=== PATIENT | female | born 1945 | race Caucasian/White ===

== ENCOUNTER 2019-05-27 09:27 | Inpatient (IN) | payer OTHER ==
[~2019-05-27] VITALS: Ht 162.6 cm; Wt 110.7 kg
[~2019-05-27 09:27] MED LIST: ALBU2.5V5 INH; ALBU90OI INH; ALBU90OI6 INH; Advair Hfa 115-12 GM INH; Aspir 8181 MG PO; BACL10 PO; Buspirone HCl7.5 MG PO; CALCAVITD PO; K-Dur 20 meq T20 MEQ PO; MAGNESIUM PO; Prednisone20 MG PO; SPIRIVA RESPIMAT4 GM INH; TORSE20 PO; TYLENOL PM PO; Ventolin Soln3 ML INH; Vitamin D2000 UNIT PO; WOMEN'S 50+ DA1 EACH PO
--- NOTE | 2019-05-27 13:51 | NUR ---
History, Chart, Medications and Allergies reviewed before start of procedure. Patient confirms NPO status and agrees with scheduled surgery. Pre-Op teaching done. Pt verbalizes understanding. LUNGS WITH SCATTERED DENSE FAR AWAY SOUNDING WHEEZES THROUGHOUT, LOUDER OVER MID-LUNG RANGE. DR BOSCH HAS ORDERED A DUONEB PRESURGICALLY. PATIENT ON 2.5 L NC AT ADMIT AND TRANSFERED TO HOSPITAL O2 ON ADMIT TO [facility]. Patient States Post-Procedure ride home has been arranged IF PATIENT IS TO BE DISCHARGED TODAY, PLAN IS TO REASSESS POST-SURGICALLY. Patient reports completing Chlorhexadine shower X2 prior to admission to hospital. TOP AND BOTTOM DENTURES IN PLACE, NO JEWELRY, HEARING AIDS, OR CONTACTS ON/IN AT ADMIT.
--- NOTE | 2019-05-27 14:24 | NUR ---
PER DR CARMEN IF PATIENT WISHES TO STAY THAT SHE IS WELCOME TO, HOWEVER HIS PLAN IS TO SEE IF SHE IS ABLE TO BE DISCHARGED HOME TODAY. AFTER HE LEFT THE BEDSIDE, PATIENT'S DAUGHTER STATED THAT SHE WILL NOT BE ABLE TO HAVE ANYONE WITH HER TONIGHT, PATIENT HAS HOME O2 THAT SHE WEARS /. EDUCATION PROVIDED THE PATIENT REGARDING RECOMMENDATION TO HAVE SOMEONE WITH HER AT LEAST 24 HRS AND THAT SHE WOULD BE AT AN INCREASED RISK FOR FALL DUE TO HER AGE, AND O2 TUBING. SHE RELUCTANTLY STATES THAT THOUGH SHE WOULD RATHER GO, SHE PROBABLY SHOULD STAY THEN; HER DAUGHTER AGREES. WILL PASS THIS INFORMATION ON TO PACU FOR REASSESSMENT POST-SURGICALLY, AND ADVOCATION FOR PATIENT TO STAY OVERNIGHT DUE TO HER INCREASED RISK OF FALL AT HOME.
--- NOTE | 2019-05-27 14:47 | NUR ---
DISCUSSED CONCERNS RELATED TO INCREASE RISK OF FALL WITH DR CARMEN, NO NEW ORDERS RECEIVED AT THIS TIME.
--- NOTE | 2019-05-27 14:49 | NUR ---
PATIENT'S HOME O2 PER PATIENT: 2.5 L NC AT REST, 3 L WITH ACTIVITY.
--- NOTE | 2019-05-27 18:26 | NUR ---
PATIENT ARRIVED ICU 5 1750 FROM OR. INTUBATED WITH 7.0 ETT [address] BOSCH UNTIL VENTILATOR SET UP BY RT LAITH. PATIENT AWAKENED AND GAGGED ON ETT, MOUTHING SHE CAN'T BREATHE AND "TAKE IT OUT" PROPOFOL STARTED AT 30 MCG/KG/MIN AT 1758. RESTRAINED TO AVOID SELF EXTUBATION. DR. CARMEN, DR. DIGGS AND DR. WERNER IN. CXR COMPLETED AND LABS BEING DRAWN NOW.
[2019-05-27 18:52] LABS: PCO2 Arterial 64.4 mmHg (35-45); PO2 Arterial 136 mmHg (80-100); pH Blood Arterial 7.37 (7.35-7.45)
[2019-05-27 19:03] LABS: BASOPHILS ABSOLUTE AUTO 0.02 K/mm3 (0.00-0.23); BASOPHILS PERCENT AUTO 0 % (0-2); EOSINOPHILS ABSOLUTE AUTO 0.02 K/mm3 (0.00-0.68); EOSINOPHILS PERCENT AUTO 0 % (0-6); Hematocrit 40.5 % (33.0-51.0); Hemoglobin 12.3 g/dL (11.5-16.0); IMMATURE GRAN ABSOLUTE AUTO 0.03 K/mm3 (0.00-0.10); IMMATURE GRAN PERCENT AUTO 0 % (0-1); LYMPHOCYTES ABSOLUTE AUTO 0.62 K/mm3 (0.84-5.20); LYMPHOCYTES PERCENT AUTO 7 % (21-46); MONOCYTES ABSOLUTE AUTO 0.15 K/mm3 (0.16-1.47); MONOCYTES PERCENT AUTO 2 % (4-13); Mean Corpuscular HGB 30.4 pg (26.0-34.0); Mean Corpuscular HGB Conc 30.4 g/dL (31.5-36.5); Mean Corpuscular Volume 100 fL (80-100); NEUTROPHILS ABSOLUTE AUTO 7.55 K/mm3 (1.96-9.15); NEUTROPHILS PERCENT AUTO 90 % (41-73); RDW Coefficient Variation 13.9 % (11.7-14.2); RDW Standard Deviation 51.3 fL (35.1-46.3); Red Blood Cell Count 4.05 M/mm3 (3.80-5.20); White Blood Cell Count 8.39 K/mm3 (4.00-11.30)
--- NOTE | 2019-05-27 19:11 | NUR ---
REPORT GIVEN TO LUIS MESA
[2019-05-27 19:14] LABS: Alanine Aminotransfer (ALT/SGP 18 U/L (12-78); Albumin, Blood 3.5 g/dL (3.4-5.0); Albumin/Globulin Ratio 0.9 (0.8-1.8); Alk Phos 81 U/L (50-136); Anion Gap 1 mmol/L (6-16); Aspartate Aminotrans (AST/SGOT 22 U/L (12-37); Bilirubin, Total 0.3 mg/dL (0.1-1.0); Blood Urea Nitrogen 18 mg/dL (8-24); Bun/Creatinine Ratio 23.4 (12.0-20.0); CO2, Blood 35 mmol/L (21-32); Chloride, Blood 100 mmol/L (98-108); Creatinine, Blood 0.77 mg/dL (0.40-1.00); Glomerular Filtration Rate >60 (60-); Glucose, Blood 136 mg/dL (70-99); Potassium, Blood 4.3 mmol/L (3.5-5.5); Sodium, Blood 136 mmol/L (136-145); Total Protein, Blood 7.5 g/dL (6.4-8.2); Troponin I 0.015 ng/mL (0.000-0.040)
[2019-05-27 19:19] LABS: Platelet Count 177 K/mm3 (150-400)
--- NOTE | 2019-05-27 19:45 | NUR ---
INITAL SHIFT ASSESSMENT PT IS CURRENTLY INTUBATED AND SEDATED. COOPERTIVE WITH CARE. OPENS EYES TO PHYSICAL STIMULI AND DRAWS LEGS UP IN BED A PAINFUL RESPONSE. SEGAL CATH WAS INSERTED BY THIS RN WITH ASSISTANCE FROM SECOND RN. SECOND IV STARTED TO RIGHT WRIST/HAND. PT TOLERATED THIS WELL. IV IS CURRENTLY SL. IV TO LEFT WRIST/HAND HAS PROPOFOL AND NS RUNNING ORDERED. PROPOFOL GTT RUNNING AT 30MCG/KG/MIN. WILL CON'T TO TITRATE NEEDED T/O SHIFT TO KEEP PT COMFORTABLE. ET TUBE IN PLACE 7.0 24 AT LIP. OG TUBE PLACED BY SANJANA Zuluaga FLOUR MIXER. PLACEMENT WAS CONFIRMED BY AUSCULTATION OF AIR WELL GASTRIC CONTENT RETURN. OG IS ON LOW INT SUCTION ORDERED WITH MINIMAL RETURN. BOWEL TONES WNL WITH SOFT ROUND ABD. TELE LEADS IN PLACE NSR NOTED. APICAL PULSE NOTED. SEE NURSES ASSESSMENT FOR RESPIRATORY STATUS AND VENT SETTINGS. PT DOES NOT APPEAR TO BE IN ANY RESP DISTRESS AT THIS TIME. DRESSINGS TO LEFT HIP HAVE SOME BLOOD NOTED. WILL CON'T TO MONITOR T/O SHIFT. PT HAS SADI HOSE WELL PAS STOCKINGS IN PLACE. ANA MARIA SOFT WRIST RESTRAINTS IN PLACE. NO SKIN ISSUES AT THIS TIME. WILL CON'T TO ASSESS SKIN UNDER WRIST RESTRAINTS. BED RAILS UP AND BED IN LOW POSISTION. WILL CON'T TO MONITOR PT T/O REMAINDER OF THIS RN'S SHIFT.
[2019-05-27 20:16] LABS: Source, Urine Catheter
[2019-05-27 20:20] LABS: Bilirubin, Urine Neg (Neg); Blood, Urine Neg (Neg); Glucose Qualitative, Urine Neg (Neg); Ketones, Urine Neg (Neg); Leukocyte Esterase, Urine Neg (Neg); Nitrite, Urine Neg (Neg); Protein, Urine Neg (Neg); Urobilinogen, Urine NORM (Normal)
[2019-05-27 20:29] LABS: Appearance, Urine Clear (Clear); Color, Urine Yellow (P-Yellow)
--- NOTE | 2019-05-28 00:50 | NUR ---
V-TACH: PT WITH RUN OF 24 VTACH. A STAT Mg ORDERED AND IS 1.9. WILL CONTINUE TO MONITOR.
--- NOTE | 2019-05-28 02:45 | NUR ---
PROPOFOL TITRATED DOWN TO 35% EXPECTING TRIAL SEDATION VACATION THIS AM.
[2019-05-28 03:19] LABS: BASOPHILS PERCENT AUTO 0 % (0-2); EOSINOPHILS PERCENT AUTO 0 % (0-6); Hematocrit 34.2 % (33.0-51.0); Hemoglobin 10.6 g/dL (11.5-16.0); IMMATURE GRAN ABSOLUTE AUTO 0.04 K/mm3 (0.00-0.10); IMMATURE GRAN PERCENT AUTO 0 % (0-1); LYMPHOCYTES ABSOLUTE AUTO 0.99 K/mm3 (0.84-5.20); LYMPHOCYTES PERCENT AUTO 8 % (21-46); MONOCYTES ABSOLUTE AUTO 0.45 K/mm3 (0.16-1.47); MONOCYTES PERCENT AUTO 4 % (4-13); Mean Corpuscular HGB 30.5 pg (26.0-34.0); Mean Corpuscular Volume 99 fL (80-100); NEUTROPHILS ABSOLUTE AUTO 10.73 K/mm3 (1.96-9.15); NEUTROPHILS PERCENT AUTO 88 % (41-73); Platelet Count 167 K/mm3 (150-400); Red Blood Cell Count 3.47 M/mm3 (3.80-5.20); White Blood Cell Count 12.21 K/mm3 (4.00-11.30)
[2019-05-28 03:47] LABS: Anion Gap 4 mmol/L (6-16); Blood Urea Nitrogen 18 mg/dL (8-24); Bun/Creatinine Ratio 25.1 (12.0-20.0); CO2, Blood 35 mmol/L (21-32); Calcium, Blood 9.1 mg/dL (8.5-10.1); Chloride, Blood 98 mmol/L (98-108); Creatinine, Blood 0.72 mg/dL (0.40-1.00); Glomerular Filtration Rate >60 (60-); Glucose, Blood 138 mg/dL (70-99); Potassium, Blood 4.4 mmol/L (3.5-5.5); Sodium, Blood 137 mmol/L (136-145)
[2019-05-28 04:00] LABS: PCO2 Arterial 55.6 mmHg (35-45); PO2 Arterial 69.4 mmHg (80-100); pH Blood Arterial 7.46 (7.35-7.45)
--- NOTE | 2019-05-28 04:17 | NUR ---
WEAN TRIAL PASS: PT BEGAN ON WEAN TRIAL AT 0324. PT SLIGHTLY ANXIOUS BUT TOLERATED WELL. SEE RT NOTE.
--- NOTE | 2019-05-28 06:23 | NUR ---
PT'S DAUGHTER CALLED AND WAS UPDATED.
--- NOTE | 2019-05-28 08:26 | NUR ---
ASSUMED CARE AT 0700. REPORT FROM SANJANA SMITH. PT INTUBATED AND SEDATED. VENT SETTINGS, AC 14/450/5/40%. PROPOFOL INFUSING AT 40 MCG/KG/MIN. PT OPENS EYES TO VERBAL STIMULI. GAG PRESENT. LUNGS CLEAR. NS INFUSING AT 80 ML/HR. DRESSING IN PLACE TO LEFT HIP. BLOODY DRAINAGE NOTED TO DRESSING. REINFORCED ON RISK TECH. PPP. CAP REFILL <2 SEC. OGT PATENT, CLAMPED. SEGAL PATENT AND DRAINING TO GRAVITY. WILL CONTINUE TO MONITOR.
--- NOTE | 2019-05-28 10:01 | NUR ---
DR CHRISTIANSON IN TO SEE PT. PLAN FOR EXTUBATION. PROPOFOL PLACED ON STANDBY AT 0909. PT CHANGED TO SPONTANEOUS MODE, PS OF 5, 40%, PEEP 5. PT RESP RATE 20'S. CALMS c REASSURANCE. VOLUMES 400-500. ORDER TO EXTUBATE. RT CALLED TO BEDSIDE. PT EXTUBATED AT 0930. BILATERAL WRIST RESTRAINTS REMOVED AT TIME OF EXTUBATION. PT HAS STRONG COUGH AND GAG. PLACED ON 4L NC UPON EXTUBATION. TOLERATING WELL. REQUESTING PAIN MEDS. DR CHRISTIANSON NOTIFIED. ORDER FOR FENTANYL PRN. CALL LIGHT IN REACH.
--- NOTE | 2019-05-28 11:19 | NUR ---
PT PENDING TRANSFER TO SURGICAL. PT TOLERATING SMALL SIPS OF WATER WELL. MANAGING SECRETIONS, SPEAKING IN FULL SENTANCES. WILL ADVANCE DIET TOLERATED. VSS. WILL CONTINUE TO MONITOR.
--- NOTE | 2019-05-28 11:49 | NUR ---
REPORT TO LEE SMITH. PT MOVED TO 219. ALL BELONGINGS c PT. VSS.
--- NOTE | 2019-05-28 12:22 | NUR ---
ASSUMED CARE OF PT, ORIENTED TO ROOM AND CALL LIGHT, EATING FULL LIQUIDS FOR LUNCH, DENIES ANY NEED FOR PAIN MEDS AT THIS TIME, DENIES ANY SOB, CONT. TO MONITOR FOR ANY CHANGES.
--- NOTE | 2019-05-28 18:02 | NUR ---
SUMMARY OOB TO CHAIR TODAY, MODERATE ASSIST, GAIT IS WEAK, INCREASED SOB WITH MINIMAL ACTIVITY, REFUSED POC CBG THIS EVENING, REPORTS PAIN HAS BEEN TOLERABLE, NO ACUTE CHANGES THIS SHIFT.
--- NOTE | 2019-05-29 04:43 | NUR ---
SHIFT SUMMARY PT POD#2 HARDWARE REMOVAL. AAOX4. DISCOMFORT CONTROLLED WITH 25mcg FENTANYL Q3-4P. NO NAUSEA/EMESIS. INCISION TO LEFT HIP WITH DRESSING, SCANT AMOUNT RED DRAINAGE, NO CHANGE THIS SHIFT. PT UP TO BSC MODERATE ASSIST WITH FWW. RESTED INFREQUENTLY T/O NIGHT, NO ACUTE CHANGES THIS SHIFT. PT RESTING AT THIS TIME, CALL LIGHT IN REACH.
--- NOTE | 2019-05-29 10:22 | NUR ---
SOB THIS AM, INCREASED WITH ACTIVITY, DENIES ANY COUGH, EXPIRATORY WHEEZES T/O AND CRACKLES NOTED ON LUNG BASES, DR. DIGGS NOTIFIED THIS AM, WORKED WITH PHY. RICKS THIS AM.
[2019-05-29 14:19] LABS: Hematocrit 34.5 % (33.0-51.0); Hemoglobin 10.7 g/dL (11.5-16.0)
--- NOTE | 2019-05-29 17:43 | NUR ---
CARE ASSUMED AT APPROXIMATELY 1730. PT ALERT AND ORIENTED. PAIN MEDICATION PROVIDED. WILL MONITOR UNTIL REPORT TO ONCOMING RN.
[2019-05-30 05:17] LABS: Anion Gap 4 mmol/L (6-16); Blood Urea Nitrogen 22 mg/dL (8-24); Bun/Creatinine Ratio 23.8 (12.0-20.0); CO2, Blood 38 mmol/L (21-32); Calcium, Blood 8.5 mg/dL (8.5-10.1); Chloride, Blood 98 mmol/L (98-108); Creatinine, Blood 0.93 mg/dL (0.40-1.00); Glomerular Filtration Rate >60 (60-); Glucose, Blood 95 mg/dL (70-99); Potassium, Blood 3.3 mmol/L (3.5-5.5); Sodium, Blood 140 mmol/L (136-145)
--- NOTE | 2019-05-30 06:17 | NUR ---
SHIFT SUMMARY LYING IN SEMI FOWLERS WITH EYES CLOSED. REPOSITIONES SELF FOR COMFORT PRN. PAIN MANAGED WITH PRN MEDS PER MD ORDERS. ASSISTED PRN TO BSC AND BACK TO BED. DENIES FURTHER NEEDS AT THIS TIME. SAFETY MEASURES IN PLACE. WILL GIVE HAND OFF TO ONCOMING SHIFT USING SBAR.
--- NOTE | 2019-05-30 11:47 | NUR ---
DRESSINGS TO L HIP AND THIGH NEEDING CHANGED. INCISION CLEANED AND NEW MEDIPORE DRESSING PLACED.
--- NOTE | 2019-05-31 04:43 | NUR ---
SHIFT SUMMARY: PT S/P REMOVAL/REPLACEMENT TO HARDWARE IN L HIP. VS WNL. PT ON 2LO2 VIA NC PER PT BASELINE. PAIN MANAGED WITH PERCOCET Q6 PER EMAR. MEDIPRE DRESSING TO LEFT HIP CHANGED WITH ABD PAD + PRESSURE TAPE. OOB TO BATHROOM WITH 1 ASSIST W/FWW+GB. PLAN FOR POSSIBLE D/C TODAY.
[2019-05-31 05:45] LABS: BASOPHILS ABSOLUTE AUTO 0.03 K/mm3 (0.00-0.23); BASOPHILS PERCENT AUTO 0 % (0-2); EOSINOPHILS ABSOLUTE AUTO 0.24 K/mm3 (0.00-0.68); EOSINOPHILS PERCENT AUTO 3 % (0-6); Hematocrit 29.5 % (33.0-51.0); IMMATURE GRAN ABSOLUTE AUTO 0.02 K/mm3 (0.00-0.10); IMMATURE GRAN PERCENT AUTO 0 % (0-1); LYMPHOCYTES ABSOLUTE AUTO 1.87 K/mm3 (0.84-5.20); LYMPHOCYTES PERCENT AUTO 26 % (21-46); MONOCYTES ABSOLUTE AUTO 0.68 K/mm3 (0.16-1.47); MONOCYTES PERCENT AUTO 9 % (4-13); Mean Corpuscular HGB 30.1 pg (26.0-34.0); Mean Corpuscular HGB Conc 30.5 g/dL (31.5-36.5); Mean Corpuscular Volume 99 fL (80-100); Mean Platelet Volume 11.5 fL (9.1-12.4); NEUTROPHILS ABSOLUTE AUTO 4.36 K/mm3 (1.96-9.15); NEUTROPHILS PERCENT AUTO 61 % (41-73); Platelet Count 178 K/mm3 (150-400); RDW Coefficient Variation 14.2 % (11.7-14.2); RDW Standard Deviation 51.1 fL (35.1-46.3); Red Blood Cell Count 2.99 M/mm3 (3.80-5.20)
[2019-05-31 06:03] LABS: Albumin, Blood 2.7 g/dL (3.4-5.0); Anion Gap 3 mmol/L (6-16); Blood Urea Nitrogen 27 mg/dL (8-24); Bun/Creatinine Ratio 27.7 (12.0-20.0); CO2, Blood 38 mmol/L (21-32); Calcium, Blood 8.7 mg/dL (8.5-10.1); Chloride, Blood 96 mmol/L (98-108); Creatinine, Blood 0.98 mg/dL (0.40-1.00); Glomerular Filtration Rate 60 (60-); Glucose, Blood 92 mg/dL (70-99); Phosphorus, Blood 3.3 mg/dL (2.5-4.9); Potassium, Blood 3.4 mmol/L (3.5-5.5); Sodium, Blood 137 mmol/L (136-145)
[2019-05-31] MEDS ORDERED: CALCIUM 600 +1 EA11 PO (12:14)
[2019-05-31] MEDS ORDERED: Percocet 5-3251 EACH PO (12:18)
--- NOTE | 2019-05-31 12:29 | NUR ---
PT HAD NO IV.
--- NOTE | 2019-05-31 12:29 | NUR ---
DISCHARGE: PT EATING AND DRINKING WELL. PT VOIDING. PT REPORTS PAIN CONTROLLED ON PO PAIN MEDICATION. PT REPORTS HAVING WALKER AT HOME. PT REFUSING TO HAVE HOME HEALTH, DR PRADO. PT REPORTS HAVING FRIENDS AND FAMILY THAT WILL HELP PT AT HOME. PT/FAMILY REPORTS UNDERSTANDING OF DISCHARGE INSTRUCTIONS. INCLUDING TO PCP PER DR DAMICO. DR DAMICO ALSO REPORTED PT MAY BE DISCHARGED. PT GIVEN MULT DRESSINGS FOR CHANGING DRESSING. PT BEEN CLEARED BY THERAPY. FAMILY GIVING PT RIDE HOME.
== END 2019-05-31 12:37 | disposition home or self-care (01) | DRG 463 ==
LOC: ORSCMMR 09:27 → ORSCSDS 10:45 → ORSCMMR 16:00 → ICUE 18:22 → SURS 05-28 12:01
PROVIDERS: Internal Medicine; Internal Medicine Critical Care Medicine; ADMIT Orthopaedic Surgery
PROC: 0BH17EZ Insertion of Endotracheal Airway into Trachea, Via Natural or Artificial Opening (ICD-10-PCS; 2019-05-27)
PROC: 5A1935Z Respiratory Ventilation, Less than 24 Consecutive Hours (ICD-10-PCS; 2019-05-27)
PROC: 0SPB0JZ Removal of Synthetic Substitute from Left Hip Joint, Open Approach (ICD-10-PCS; principal; 2019-05-27 16:00)
DX: T84.84XA Pain due to internal orthopedic prosthetic devices, implants and grafts, initial encounter (principal); J95.821 Acute postprocedural respiratory failure; J44.1 Chronic obstructive pulmonary disease with (acute) exacerbation; I97.89 Other postprocedural complications and disorders of the circulatory system, not elsewhere classified; I47.2 Ventricular tachycardia; I10 Essential (primary) hypertension; E66.01 Morbid (severe) obesity due to excess calories; K59.00 Constipation, unspecified; E87.6 Hypokalemia; D64.9 Anemia, unspecified; Z99.81 Dependence on supplemental oxygen; Z87.891 Personal history of nicotine dependence; Z96.642 Presence of left artificial hip joint
CPT/HCPCS: 31720; 36415; 36416; 36600; 51702; 71045; 80048; 80053; 80069; 81003; 82803; 82947; 83605; 83735; 83880; 84484; 85014; 85018; 85025; 94002; 94003; 94640; 94760; 97110; 97116; 97162; 97166; 97530; A9270; C1713; C9113; J0690; J1100; J1650; J2250; J2405; J2704; J2710; J2930; J3010; J7030; J7120

== ENCOUNTER 2019-06-09 16:06 | Inpatient (IN) | payer OTHER ==
[~2019-06-09] VITALS: Ht 162.6 cm; Wt 112.0 kg
[~2019-06-09 16:06] MED LIST changes: +CALCIUM 600 +1 EA11 PO; +Percocet 5-3251 EACH PO
[2019-06-09 16:35] LABS: Calcium, Ionized (POC) 1.14 mmol/L (1.10-1.46); Chloride (POC) 92 mmol/L (98-108); Creatinine (POC) 0.9 mg/dL (0.6-1.0); Glucose (ISTAT POC) 114 mg/dL (70-99); Hemoglobin (POC) 10.5 g/dL (12.0-16.0); Potassium (POC) 4.2 mmol/L (3.5-5.5); Sodium (POC) 134 mmol/L (135-148); Total CO2 (POC) 34 mmol/L (21-32)
[2019-06-09 16:42] LABS: BASOPHILS ABSOLUTE AUTO 0.03 K/mm3 (0.00-0.23); BASOPHILS PERCENT AUTO 0 % (0-2); EOSINOPHILS ABSOLUTE AUTO 0.07 K/mm3 (0.00-0.68); EOSINOPHILS PERCENT AUTO 1 % (0-6); Hematocrit 31.1 % (33.0-51.0); Hemoglobin 9.5 g/dL (11.5-16.0); IMMATURE GRAN ABSOLUTE AUTO 0.05 K/mm3 (0.00-0.10); IMMATURE GRAN PERCENT AUTO 0 % (0-1); LYMPHOCYTES ABSOLUTE AUTO 1.88 K/mm3 (0.84-5.20); LYMPHOCYTES PERCENT AUTO 16 % (21-46); MONOCYTES ABSOLUTE AUTO 0.73 K/mm3 (0.16-1.47); MONOCYTES PERCENT AUTO 6 % (4-13); Mean Corpuscular HGB 30.4 pg (26.0-34.0); Mean Corpuscular HGB Conc 30.5 g/dL (31.5-36.5); Mean Corpuscular Volume 100 fL (80-100); Mean Platelet Volume 9.8 fL (9.1-12.4); NEUTROPHILS ABSOLUTE AUTO 8.86 K/mm3 (1.96-9.15); NEUTROPHILS PERCENT AUTO 76 % (41-73); Platelet Count 307 K/mm3 (150-400); RDW Coefficient Variation 14.8 % (11.7-14.2); RDW Standard Deviation 53.5 fL (35.1-46.3); Red Blood Cell Count 3.12 M/mm3 (3.80-5.20); White Blood Cell Count 11.62 K/mm3 (4.00-11.30)
[2019-06-09 17:08] LABS: Alanine Aminotransfer (ALT/SGP 41 U/L (12-78); Albumin, Blood 3.2 g/dL (3.4-5.0); Albumin/Globulin Ratio 0.9 (0.8-1.8); Alk Phos 84 U/L (50-136); Anion Gap 5 mmol/L (6-16); Aspartate Aminotrans (AST/SGOT 46 U/L (12-37); Bilirubin, Total 0.3 mg/dL (0.1-1.0); Blood Urea Nitrogen 18 mg/dL (8-24); CO2, Blood 32 mmol/L (21-32); Calcium, Blood 9.7 mg/dL (8.5-10.1); Chloride, Blood 96 mmol/L (98-108); Creatinine, Blood 0.82 mg/dL (0.40-1.00); Globulin, Blood 3.7 g/dL (2.2-4.0); Glomerular Filtration Rate >60 (60-); Glucose, Blood 110 mg/dL (70-99); Potassium, Blood 4.2 mmol/L (3.5-5.5); Sodium, Blood 133 mmol/L (136-145); Total Protein, Blood 6.9 g/dL (6.4-8.2); Troponin I 0.041 ng/mL (0.000-0.040)
--- NOTE | 2019-06-09 22:00 | NUR ---
ASSUMED PT CARE AT 1999 PT TRANSFERRED TO ICU FROM ED SECONDARY TO COMPLETE HEART BLOCK. UPON ARRIVAL HR WAS NOTED TO BE 37. BLOOD PRESSURE STABLE WITH SBP 140'S-150'S. PT ALERT AND ORIENTED AND ABLE TO MAKE NEEDS KNOWN. PT DENIES ANY CHEST PAIN. STATES SHE GETS SOB WITH EXERTION AND FEELS DIZZY AT TIMES. LUNG SOUNDS ARE DIMINISHED T/O ALL LOBES. PT REQUIRES 3L OXYGEN VIA NC; PT STATES HER BASELINE AT HOME IS 2-3L. SKIN IS WARM AND DRY WITH STRONG PERIPHERAL PULSES. +1 PITTING EDEMA TO BLE'S. PT HAS A HIP INCISION TO LEFT HIP S/P GAMMA NAIL REVISION TWO WEEKS AGO FROM DR. CARMEN. ADIS REMOVED TODAY; STERI STRIPS ARE INTACT; INCISION IS WELL APPROXIMATED WITH NO S/SX OF DEHISCENCE. NO DRAINAGE FROM INCISION. PT DENIES PAIN AT THIS TIME. CALL LIGHT LEFT WITHIN REACH. PLANS FOR PACEMAKER PLACEMENT IN THE MORNING; WILL START PT NPO AFTER MIDNIGHT. WILL CONTINUE TO MONITOR CARDIAC STATUS T/O NIGHT AND REPORT TO PHYSICIAN IF PT BECOMES UNSTABLE.
[2019-06-10 03:38] LABS: BASOPHILS ABSOLUTE AUTO 0.02 K/mm3 (0.00-0.23); BASOPHILS PERCENT AUTO 0 % (0-2); EOSINOPHILS ABSOLUTE AUTO 0.19 K/mm3 (0.00-0.68); EOSINOPHILS PERCENT AUTO 2 % (0-6); Hematocrit 29.1 % (33.0-51.0); Hemoglobin 8.9 g/dL (11.5-16.0); IMMATURE GRAN ABSOLUTE AUTO 0.02 K/mm3 (0.00-0.10); IMMATURE GRAN PERCENT AUTO 0 % (0-1); LYMPHOCYTES ABSOLUTE AUTO 1.74 K/mm3 (0.84-5.20); LYMPHOCYTES PERCENT AUTO 21 % (21-46); MONOCYTES ABSOLUTE AUTO 0.66 K/mm3 (0.16-1.47); MONOCYTES PERCENT AUTO 8 % (4-13); Mean Corpuscular HGB Conc 30.6 g/dL (31.5-36.5); Mean Corpuscular Volume 101 fL (80-100); Mean Platelet Volume 10.2 fL (9.1-12.4); NEUTROPHILS ABSOLUTE AUTO 5.83 K/mm3 (1.96-9.15); NEUTROPHILS PERCENT AUTO 69 % (41-73); Platelet Count 282 K/mm3 (150-400); RDW Coefficient Variation 14.7 % (11.7-14.2); RDW Standard Deviation 54.1 fL (35.1-46.3); Red Blood Cell Count 2.87 M/mm3 (3.80-5.20); White Blood Cell Count 8.46 K/mm3 (4.00-11.30)
[2019-06-10 03:54] LABS: International Normalized Ratio 0.95; Prothrombin Time Results 10.1 Sec (9.7-11.5)
[2019-06-10 03:58] LABS: Anion Gap 2 mmol/L (6-16); Blood Urea Nitrogen 20 mg/dL (8-24); Bun/Creatinine Ratio 24.1 (12.0-20.0); CHOL/HDL RATIO 2.1; CO2, Blood 38 mmol/L (21-32); Calcium, Blood 9.1 mg/dL (8.5-10.1); Chloride, Blood 96 mmol/L (98-108); Cholesterol 204 mg/dL (50-200); Creatinine, Blood 0.83 mg/dL (0.40-1.00); Glomerular Filtration Rate >60 (60-); Glucose, Blood 102 mg/dL (70-99); HDL Cholesterol 95 mg/dL (>39); Low Density Lipoprotein Chol 92 mg/dL (0-110); Potassium, Blood 4.2 mmol/L (3.5-5.5); Sodium, Blood 136 mmol/L (136-145); Triglycerides 86 mg/dL (30-160); Very Low Density Lipoprot Chol 17 mg/dL (6-32)
--- NOTE | 2019-06-10 06:12 | NUR ---
END OF SHIFT SUMMARY PT HAS REMAINED IN A COMPLETE HEART BLOCK WITH HR IN THE LOW 30'S. PT STILL C/O SOB AND DIZZINESS. BLOOD PRESSURES HAVE BEEN STABLE. PT HAS BEEN ASSISTED WITH BEDPAN T/O NIGHT. PT VOIDING ADEQUATELY. PT HAS REMAINED ALERT AND ORIENTED T/O NIGHT; ABLE TO MAKE NEEDS KNOWN. NPO AFTER MIDNIGHT FOR ANTICIPATED PACEMAKER PLACEMENT THIS MORNING. ELECTRIC RANGE SERVICER CALLED THIS MORNING VERIFYING CONSENT HAS BEEN SIGNED AND STATED THEY WOULD BE DOWN FIRST THING THIS MORNING TO GET HER. PT INFORMED OF INFORMATION AND WAS VERY GRATEFUL SHE IS VERY FATIGUED AND WAS SCARED TO FALL ASLEEP AND NOT WAKE UP; THEREFORE, SHE GOT LITTLE TO NO SLEEP. PT IS VERY ANXIOUS FOR PROCEDURE. WILL CONTINUE TO MONITOR UNTIL REPORT IS HANDED OFF TO ONCOMING RN.
--- NOTE | 2019-06-10 06:46 | NUR ---
PT TRANSPORTED TO AREA CAPTAIN FOR PACEMAKER PLACEMENT.
--- NOTE | 2019-06-10 06:55 | NUR ---
PHONE CALL PLACED TO DAUGHTERTEODORA, MESSAGE LEFT.
[2019-06-10 08:26] LABS: Troponin I 0.037 ng/mL (0.000-0.040)
[2019-06-10 08:28] LABS: Thyroid Stimulating Hormone 3.09 uIU/mL (0.360-4.800)
--- NOTE | 2019-06-10 09:42 | NUR ---
PT IN ESTATE MANAGER Report received from Mousatpha SMITH at 0700. Pt remains in laborer syrup machine at this time. Pt's daughter to unit, guided to heart center waiting room.
--- NOTE | 2019-06-10 10:48 | NUR ---
PT BACK FROM [facility]TER Pacemaker insertion site noted to left chest wall. Sling placed per orders. Pt A&O x 4, but lethargic. Plan to give AM meds when pt is more alert. Visiting with family at bedside. 100% paced, HR 75. Pacemaker education packet given to and reviewed with family.
--- NOTE | 2019-06-10 11:53 | NUR ---
Echocardiogram completed.
--- NOTE | 2019-06-10 14:50 | NUR ---
CALL PLACED TO DR EARL Updated on pt condition. Provider stated pt okay for PCU status.
--- NOTE | 2019-06-10 18:23 | NUR ---
SUMMARY Pt A&O x 4 for entire time on unit since arrival from laborer syrup machine. Pt PCU status. Currently on 3 LPM NC, which is home O2 dose. SpO2 94%. Pt did not get OOB this shift. Voids into bedpan. Pt initially reluctant to take torsemide but was willing to do so after education. Pt 100% ventricular paced. Rate ranging from 60 to 75. Pt states she is feeling "so much better" compared with when she first came into ER. Pt did not have BM this shift. Pt sleeping at this time. Bed in lowest position. Call light in reach. Will continue to closely monitor until care handoff and bedside report with oncoming RN.
[2019-06-11 03:17] LABS: Hematocrit 27.7 % (33.0-51.0); Hemoglobin 8.3 g/dL (11.5-16.0); Mean Corpuscular HGB 30.2 pg (26.0-34.0); Mean Corpuscular Volume 101 fL (80-100); Mean Platelet Volume 9.9 fL (9.1-12.4); Platelet Count 210 K/mm3 (150-400); RDW Coefficient Variation 14.6 % (11.7-14.2); RDW Standard Deviation 52.6 fL (35.1-46.3); Red Blood Cell Count 2.75 M/mm3 (3.80-5.20); White Blood Cell Count 7.81 K/mm3 (4.00-11.30)
[2019-06-11 03:33] LABS: Albumin, Blood 2.4 g/dL (3.4-5.0); Anion Gap 1 mmol/L (6-16); Blood Urea Nitrogen 19 mg/dL (8-24); Bun/Creatinine Ratio 21.3 (12.0-20.0); CO2, Blood 42 mmol/L (21-32); Calcium, Blood 8.5 mg/dL (8.5-10.1); Chloride, Blood 97 mmol/L (98-108); Creatinine, Blood 0.89 mg/dL (0.40-1.00); Glomerular Filtration Rate >60 (60-); Glucose, Blood 87 mg/dL (70-99); Phosphorus, Blood 3.5 mg/dL (2.5-4.9); Potassium, Blood 3.9 mmol/L (3.5-5.5); Sodium, Blood 140 mmol/L (136-145)
--- NOTE | 2019-06-11 03:36 | NUR ---
PT O2 INCREASED: PT MOUTH-BREATHER WHEN SLEEPING. O2 SATS DROPPED DOWN TO 79%. N/C PLACED IN MOUTH DURING DESATURATIONS WITH SATS STAYING >95% WHEN N/C IN MOUTH. CURRENTLY PT REFUSING N/C IN MOUTH. SATS 87-90% ON 5L. WILL CONTINUE TO MONITOR.
[2019-06-11 03:49] LABS: Percent Saturation 6.6 % (15.0-50.0)
--- NOTE | 2019-06-11 05:35 | NUR ---
SHIFT SUMMARY: PT RESTED MOST OF NOC. PT WITH HIGH ANXIETY AT START OF SHIFT RELIEVED AFTER BUSPAR ADMIN. PT FEARFUL OF MOVEMENT AND UNSURE IF ABLE TO USE WALKER AT HOME. PT'S DAUGHTER TEODORA STATED PT LIVES IN A STUDIO APARTMENT AND USES A WALKER. PT OTHERWISE, VSS, HOWEVER, DESATS WHEN SLEEPING R/T MOUTH-BREATHING. PT USES CALL LIGHT APPROPRIATELY. PT WITH PT ORDERED. WILL CONTINUE TO MONITOR AND REPORT OFF TO ONCOMING RN.
--- NOTE | 2019-06-11 07:55 | NUR ---
ASSUMED CARE / PACER INTERROGATION: REPORT RECEIVED FROM SANJANA Thompson RN. ASSUMED CARE OF THIS PT AT APPROX 0700. ON ASSESSMENT, THE PT IS A&O, PLEASANT & COOPERATIVE. SHE STS PAIN TO L SHOULDER/ CHEST WALL R/T SURGICAL SITE FOR PACER PLACEMENT HAS IMPROVED SINCE MEDS PER EMAR. SURGICAL SITE WNL, AREA TENDER TO PALPATION BUT PT STS IMPROVING. PT ON 4L NC W/ O2 SATS > 92%, PT CONTINUOUSLY WEARS 3L NC AT HOME. SHE HAS NO GI/ COMPLAINTS. PACER INTERROGATION HAS BEEN COMPLETED. THERE IS CONCERN THAT THE PT HAS BEEN IN AFIB FOR APPROX 12% OF TIME SINCE PACER PLACED, SHE IS CURRENTLY ON NO ANTICOAGULATION. WILL NOTIFY PROVIDER DURING ROUNDS. WILL CONTINUE TO MONITOR & UPDATE NEEDED.
--- NOTE | 2019-06-11 09:20 | NUR ---
DR MANN: PROVIDER AT BEDSIDE. NOTIFIED HER OF THIS AM's PACER INTERROGATION READING AFIB. SHE STS SHE WOULD LIKE THE LICENSED GUIDE TO DETERMINE IF ANTICOAG THERAPY SHOULD BE ORDERED. NO OTHER CHANGES AT THIS TIME. WILL CONTINUE TO MONITOR & UPDATE NEEDED.
--- NOTE | 2019-06-11 18:21 | NUR ---
SHIFT SUMMARY / TRANSFER TO PCU: NO ACUTE CHANGES THIS SHIFT. PT REMAINS A&O, PLEASANT & COOPERATIVE. SHE HAS CONTINUED C/O PAIN TO HER L SHOULDER S/P PACER PLACEMENT, MEDS PER EMAR. PT IS ON HOME DOSE OF O2, 3L NC W/ O2 SATS > 92%. DYSPNEA NOTED W/ EXERTION. MONITOR SHOWS 100% V-PACED RHYTHM W/ OCCASIONAL A-PACING ALSO NOTED, HR 60s. BP STABLE. PT HAS NO GI/ COMPLAINTS. REPORT HAS BEEN GIVEN TO ZAIRA Thompson RN TO ASSUME CARE. PT TX TO PCU-12 AT APPROX 1805. ALL BELONGINGS, CHART, MEDS & PRASHANTH-WALKER HAVE BEEN TAKEN TO NEW ROOM.
--- NOTE | 2019-06-11 18:40 | NUR ---
ARRIVAL TO UNIT PT ARRIVED TO UNIT FROM ICU VIA BED. PT ABLE TO TRANSFER FROM ICU BED TO NEW BED WITH ASSISTANCE FROM STAFF. PT USED HEMIWALKER TO GO FROM ONE BED TO ANOTHER. SLING REMAINS IN PLACE. DRESSING IN TACT ON UPPPER LEFT CHEST WALL. STERI STRIPS IN PLACE ON LEFT HIP FORM PREVIOUS HIP SURGERY. PROVIDED PT WITH ICE PACK TO HAVE ON UPPER CHEST WALL. PT ABLE TO SIT UP AND HAVE DINNER. BED IN LOW POSITION, CALL LIGHT IN REACH AND PT DENIES NEEDS. WILL CONTINUE TO MONITOR UNTIL HANOD TO NIGHTSHIFT RN.
--- NOTE | 2019-06-11 19:35 | NUR ---
SHIFT SUMMARY PT STATUS REMAINS UNCHANGED SINCE ARRIVAL. BED IN LOW POSITION, CALL LIGHT IN REACH AND PT DENIES ANY NEEDS. WILL CONTINUE TO MONTIOR UNTIL HANDOFF TO NIGHTSHIFT RN
[2019-06-12 03:51] LABS: Albumin, Blood 2.5 g/dL (3.4-5.0); Anion Gap 5 mmol/L (6-16); Blood Urea Nitrogen 15 mg/dL (8-24); Bun/Creatinine Ratio 20.7 (12.0-20.0); CO2, Blood 38 mmol/L (21-32); Calcium, Blood 8.9 mg/dL (8.5-10.1); Chloride, Blood 94 mmol/L (98-108); Creatinine, Blood 0.72 mg/dL (0.40-1.00); Glomerular Filtration Rate >60 (60-); Glucose, Blood 89 mg/dL (70-99); Phosphorus, Blood 2.8 mg/dL (2.5-4.9); Potassium, Blood 3.8 mmol/L (3.5-5.5); Sodium, Blood 137 mmol/L (136-145)
--- NOTE | 2019-06-12 04:35 | NUR ---
ASSUMED CARE APPROXIMATELY 1900; PT ALERT; C/O OF SURGICAL SITE SENSITIVITY AND PAIN IN SHOULDER; PT REPOSITIONED AND MEDICATED PER ORDERS; PT EDUCATED ON GETTING UP W/ ASSISTANCE TO BSC; MOVEMENT ECOURAGED TO BUILD STRENGTH AND PERFORMING ADL'S; PT STATES SHE LIVES ALONE AND DESIRES INDEPENDENCE; STATES FAMILY HAS DESIRE FOR SNF; PT TO BSC W/ ASSISTANCE AND MISAEL WELL; PT PARTICULAR W/ CARE; PT ENCOURAGED TO USE BED CONTROLS; PT REPOSITIONED AND TALKED FOR DISTRACTION; SLEPT WELL IN BETWEEN INTERVENTIONS; CALL LIGHT IN REACH; BED IN LOWEST POSITION; WILL CONTINUE TO MONITOR AND ASSESS UNTIL HAND OFF TO DAY SHIFT RN.
--- NOTE | 2019-06-12 10:07 | NUR ---
pt able to transfer with Fawad walker with no assist. When talking to her about walking to the bathroom instead of the bsc she got defensive saying not now maybe this afternoon. came in and told her she needs to start siting in a chair and doing more to get her strength back. Pt said "yes they want me to sit in a recliner but I will later today." call light in reach.
--- NOTE | 2019-06-12 11:21 | NUR ---
0815 PT IS RESTLESS AND C/O L SHOULDER PAIN THAT IS RELEAVED WITH SOME IMPROVED SUPPORT AND REPOSITIONING. PT IS COOP. BUT IS POORLY MOTIVATED AT TIMES (POSSIBLE FEARFUL) BUT CAN BE COACHED AND DIRECTED WITH CARE. PACER DSG SITE IS INTACT, SLING IN ON AND PILLOW FOR EXTRA SUPPORT. L HIP INCISION IS INTACT WITH STERI STRIPS AND SITE IS CLEAN AND DRY W/O REDNESS NOTED. PAIN RELIEF TO FOLLOW, SEE EMAR.
--- NOTE | 2019-06-12 13:22 | NUR ---
PT IS RESTING CALMLY, COOPERATING, AND IS VERBALLY APPROP. WITH CARE AND STAFF.
--- NOTE | 2019-06-12 13:27 | NUR ---
PT CONT. TO SET UP IN CHAIR AND WATCHING TV. ARM SUPPORT AND COACHING TO RELAX HAS ASSISTED IN PAIN AND COMFORT ISSUES.
--- NOTE | 2019-06-12 18:32 | NUR ---
PT HAS BEEN UP TO BATHROOM TO VOID AND IN CHAIR A GOOD PERIOD OF THIS PM. PT HAS RECIEVED RELIEF FROM FLOATING L ARM ON SHOULDER AND ENCOURAGING PT TO RELAX THE UPWARD SHOULDER SHRUG MOVEMENT. PO PAIN MEDS TIMES ONE TODAY. MILD SOB NOTED WITH PT DURING EXERSION BUT WOULD RECOVER WELL AND PT STATES THAT THIS IS NORMAL FOR HER RESP. STATUS.
--- NOTE | 2019-06-13 00:52 | NUR ---
ASSUMED CARE APPROXIMATELY 1900; PT UP IN ROOM AND AMBULATED SELF TO BATHROOM; PT ENCOURAGED AND APPLAUDED FOR EFFORT AND IMPROVEMENTS MADE FROM PREVIOUS DAY; L HIP SURGICAL SITE CLEAN AND DRY W/ STERI STRIPS INTACT; L ARM SLING IN PLACE, NO CHANGES NOTED IN PACEMAKER SURGICAL SITE; PT MEDICATED FOR PAIN PER EMAR; PT COMPLIANT W/ CARE AND CALLS APPROPRIATELY; CALL LIGHT IN REACH; BED IN LOWEST POSITION; BATHROOM LIGHT ON; WILL CONTINUE TO MONITOR AND ASSESS UNTIL HAND OFF TO DAY SHIFT RN.
[2019-06-13 04:09] LABS: Albumin, Blood 2.6 g/dL (3.4-5.0); Anion Gap 3 mmol/L (6-16); Blood Urea Nitrogen 18 mg/dL (8-24); Bun/Creatinine Ratio 24.6 (12.0-20.0); CO2, Blood 41 mmol/L (21-32); Calcium, Blood 9.2 mg/dL (8.5-10.1); Chloride, Blood 94 mmol/L (98-108); Creatinine, Blood 0.73 mg/dL (0.40-1.00); Glomerular Filtration Rate >60 (60-); Glucose, Blood 89 mg/dL (70-99); Phosphorus, Blood 3.2 mg/dL (2.5-4.9); Potassium, Blood 3.5 mmol/L (3.5-5.5); Sodium, Blood 138 mmol/L (136-145)
[2019-06-13] MEDS ORDERED: DOCU100 PO (16:26)
[2019-06-13] MEDS ORDERED: FERSU300 PO (16:27)
--- NOTE | 2019-06-13 17:19 | NUR ---
SHIFT SUMMARY PT ALERT AND ORIENTED. VS STABLE. WOUND TO LEFT CHEST WALL COVERED WITH DRESSING C/D/I WITH SLIGHT BRUISING. PT COMPLAINS OF PAIN AT SITE ON AND OFF. PT MEDICATED NEEDED. ORDERS FOR DISCHARGE TO SNF THIS AFTERNOON. PT UPDATED. TRANSPORT TO BE HERE AT APPROXIMATELY 1730.
--- NOTE | 2019-06-13 17:48 | NUR ---
REPORT CALLED TO YEISON. PT TAKEN BY BYRON.
== END 2019-06-13 17:47 | DRG 243 ==
LOC: ER 16:06 → ICUW 18:29 → PCU 06-11 18:10
PROVIDERS: Internal Medicine; Nurse Practitioner Acute Care; Physician Assistant; ADMIT Internal Medicine
PROC: 0JH606Z Insertion of Pacemaker, Dual Chamber into Chest Subcutaneous Tissue and Fascia, Open Approach (ICD-10-PCS; principal; 2019-06-10)
PROC: 02H63JZ Insertion of Pacemaker Lead into Right Atrium, Percutaneous Approach (ICD-10-PCS; 2019-06-10)
PROC: 02HL3JZ Insertion of Pacemaker Lead into Left Ventricle, Percutaneous Approach (ICD-10-PCS; 2019-06-10)
DX: I44.2 Atrioventricular block, complete (principal); Z68.41 Body mass index [BMI] 40.0-44.9, adult; J96.11 Chronic respiratory failure with hypoxia; Z99.81 Dependence on supplemental oxygen; Z79.82 Long term (current) use of aspirin; Z87.891 Personal history of nicotine dependence; J44.9 Chronic obstructive pulmonary disease, unspecified; M19.90 Unspecified osteoarthritis, unspecified site; E66.01 Morbid (severe) obesity due to excess calories; F41.9 Anxiety disorder, unspecified; I10 Essential (primary) hypertension; G47.33 Obstructive sleep apnea (adult) (pediatric); D50.9 Iron deficiency anemia, unspecified
CPT/HCPCS: 33208; 36415; 71045; 71046; 76937; 80047; 80048; 80053; 80061; 80069; 82728; 83540; 83550; 83880; 84145; 84443; 84484; 85014; 85025; 85027; 85610; 85730; 93005; 93010; 93306; 94640; 94760; 97112; 97116; 97162; 97530; 99152; 99153; 99285-25; A9270; C1785; C1898; J0461; J0690; J1250; J1644; J2250; J3010; J7030; J7040